=== PATIENT | female | born 1945 | race Caucasian/White ===

== ENCOUNTER 2022-05-21 18:52 | Emergency (ER) | payer MEDICARE, SELFPAY ==
--- NOTE | ~2022-05-21 | CT_ITS ---
EXAMINATION: CT abdomen pelvis wo con DATE: 05/21/2022 19:51 INDICATION: right flank painX2 DAYS, GROSS HEMATURIA, DYSURIA TECHNIQUE: Computed tomography (CT) of the abdomen and pelvis was performed without intravenous contr ast. Automated exposure control and iterative reconstruction technique were employed. The dose-length product was 865.68 mGy-cm. COMPARISON: None. FINDINGS: Lower thorax: Basilar scarring. Aortic valve calcification. Liver: Normal. Biliary/Gallbladder: Gallbladder is absent. No bile duct dilation. Pancreas: No mass or duct dilation. Spleen: Normal. Adrenals:No mass. Kidneys: No obstructive calcification or suspicious mass. Mild bilateral ureterectasis and periureter al stranding, greater on the right. GI tract: Prior gastric surgery No small or large bowel dilation. Normal appendix. Diverticulosis wit hout diverticulitis. Mesentery/Peritoneum: No ascites, mass, or free air. Retroperitoneum: No mass. Prominent periaortic nodes, not pathologically enlarged by size criteria. Pelvis: The urinary bladder is partially decompressed. Mild bladder wall inflammatory change. Uterus is absent.. Soft Tissues: Soft tissues and body wall unremarkable. Bones: No acute osseous finding. IMPRESSION: CT findings that likely represent cystitis with bilateral ascending infection, worse on the right. Reviewed, dictated and finalized at location K.
[2022-05-21 18:55] VITALS: BP 156/90; PULSE 99; RESP 16; TEMP 36.6; O2SAT 98
[2022-05-21 19:29] LABS: Add Urine Microscopic? YES; Appearance Urine Cloudy (Clear); Bilirubin Urine 2+ (Negative); Blood Urine 3+ (Negative); Color Urine Brown (Yellow); Glucose Urine UA Negative (Negative); Ketones Urine 1+ mg/dL (Negative); Leukocyte Esterase Ur 1+ LEU/UL (Negative); Nitrate Urine Positive (Negative); Protein Urine 3+ mg/dL (Negative)
--- NOTE | 2022-05-21 19:30 | ED.GENADULT ---
HPI - General Adult General Chief complaint: Urogenital-Female Stated complaint: UTI? Time Seen by Provider: 05/21/22 19:08 History of Present Illness HPI narrative: Patient 76-year-old female who presents the emergency department with chief complaint of right flank pain and hematuria. The patient states that several days ago she started having some darker urine and noticed that she was having burning with urination the patient states that she took some Azo that improved her symptoms but did not completely clear up things. The patient reports that she has had issues before like this when she had UTIs patient denies fever reports she has had some nausea but no vomiting. The patient denies history of kidney stones reports that she had a prior cholecystectomy Related Data Allergies Allergy/AdvReac Type Severity Reaction Status Date / Time No Known Allergies Allergy Verified 05/21/22 18:58 Review of Systems Review of Systems: A 10 system review of systems was completed on the patient and is negative except for what is stated in the HPI. Nursing and ancillary documentation was reviewed. Exam Narrative: GENERAL: Well-appearing, well-nourished, and in no acute distress. HEAD: Normocephalic, atraumatic. EYES: PERRLA and EOMI. ENT: Nares clear, no rhinorrhea or epistaxis. Mucous membranes moist. NECK: Supple. CHEST: Clear to auscultation. No respiratory distress. HEART: Regular rate and rhythm. No murmur heard. Normal peripheral pulses. ABDOMEN: Soft, mild tenderness to palpation throughout the abdomen, nondistended, normal active bowel sounds. EXTREMITIES: Normal range of motion. No edema. SKIN: Warm, dry, no rash. NEURO: No focal deficits. Alert and oriented x3. PSYCH: Normal mood and affect. Course Vital Signs Vital signs: Vital Signs Temperature 36.6 C 05/21/22 18:55 Pulse Rate 99 05/21/22 18:55 Respiratory Rate 16 05/21/22 18:55 Blood Pressure 156/90 H 05/21/22 18:55 Pulse Oximetry 98 05/21/22 18:55 Temperature 36.6 C 05/21/22 18:55 Pulse Rate 99 05/21/22 18:55 Respiratory Rate 16 05/21/22 18:55 Blood Pressure 156/90 H 05/21/22 18:55 Pulse Oximetry 98 05/21/22 18:55 Medical Decision Making Vital Signs Vital Signs: Vital Signs Temperature 36.6 C 05/21/22 18:55 Pulse Rate 99 05/21/22 18:55 Respiratory Rate 16 05/21/22 18:55 Blood Pressure 156/90 H 05/21/22 18:55 Pulse Oximetry 98 05/21/22 18:55 Temperature 36.6 C 05/21/22 18:55 Pulse Rate 99 05/21/22 18:55 Respiratory Rate 16 05/21/22 18:55 Blood Pressure 156/90 H 05/21/22 18:55 Pulse Oximetry 98 05/21/22 18:55 Lab Data Result diagrams: 05/21/22 19:28 05/21/22 19:28 Labs: Lab Results 05/21/22 05/21/22 05/21/22 Range/Units 19:23 19:28 19:28 WBC 10.8 H (4.5-10.0) K/mm3 RBC 3.99 L (4.2-5.4) M/mm3 Hgb 11.8 L (12.0-15.0) g/dL Hct 37.3 (37.0-47.0) % MCV 93.5 (80-100) fl MCH 29.6 (26-34) pg MCHC 31.6 L (32-36) g/dl RDW 13.4 (11.5-14.5) % Plt Count 235 (150-375) k/mm3 MPV 11.9 H (7.4-10.4) fl Immature Gran % (Auto) 0.3 (0-0.5) % Neut % (Auto) 69.4 (45.5-73.1) % Lymph % (Auto) 20.3 (18.3-44.2) % Gallia % (Auto) 9.0 H (2.6-8.5) % Eos % (Auto) 0.6 (0-4.4) % Baso % (Auto) 0.4 (0.2-1.2) % Lymph # (Auto) 2.18 (0.9-3.2) K/mm3 Gallia # (Auto) 1.0 H (0.1-0.6) K/mm3 Eos # (Auto) 0.1 (0-0.3) K/mm3 Baso # (Auto) 0.0 (0.0-0.1) K/mm3 Abs Immat Gran (auto) 0.03 (0.00-0.031) K/mm3 Absolute Neuts (auto) 7.5 H (1.3-6.7) K/mm3 Absolute Nucleated RBC 0.0 (0.0-0.012) K/mm3 Nucleated RBC % 0.0 (0.0-0.2) % Sodium 140 (137-145) mmol/L Potassium 4.3 (3.4-5.0) mmol/L Chloride 104 (98-107) mmol/L Carbon Dioxide 29 (22-30) mmol/L Anion Gap 7 L (8-16) mmol/L BUN 20 H (7-17) mg/dL Creatinine 1.20 H (0.7-1.0) mg/dL Estim
[2022-05-21 19:34] LABS: RBC Urine >75 /hpf (0-2); WBC Clumps Urine Present /HPF; WBC Urine >75 /hpf
[2022-05-21 19:43] LABS: Basophils Percent Auto 0.4 % (0.2-1.2); Eosinophils Absolute Auto 0.1 K/mm3 (0-0.3); Eosinophils Percent Auto 0.6 % (0-4.4); Hematocrit 37.3 % (37.0-47.0); Hemoglobin 11.8 g/dL (12.0-15.0); Immature Granulocyte Absolute 0.03 K/mm3 (0.00-0.031); Immature Granulocyte Percent A 0.3 % (0-0.5); Lymphocytes Absolute Auto 2.18 K/mm3 (0.9-3.2); Lymphocytes Percent Auto 20.3 % (18.3-44.2); Mean Corpuscular HGB Conc 31.6 g/dl (32-36); Mean Corpuscular Hemoglobin 29.6 pg (26-34); Mean Corpuscular Volume 93.5 fl (80-100); Mean Platelet Volume 11.9 fl (7.4-10.4); Neutrophils Absolute Auto 7.5 K/mm3 (1.3-6.7); Neutrophils Percent Auto 69.4 % (45.5-73.1); Platelet Count Result 235 k/mm3 (150-375); Red Blood Count 3.99 M/mm3 (4.2-5.4); Red Cell Distribution Width 13.4 % (11.5-14.5); White Blood Count 10.8 K/mm3 (4.5-10.0)
[2022-05-21 19:53] LABS: Alanine Aminotransferase 21 U/L (6-35); Alkaline Phosphatase 81 U/L (38-126); Anion Gap 7 mmol/L (8-16); Aspartate Amino Transferase 37 U/L (14-36); Bilirubin,Total 0.5 mg/dL (0.2-1.3); Blood Urea Nitrogen 20 mg/dL (7-17); Calcium 8.3 mg/dL (8.4-10.2); Carbon Dioxide 29 mmol/L (22-30); Chloride 104 mmol/L (98-107); Estimated CRCL calculation 41 ml/min; Estimated Glomerular Filt Rate 44; Glucose 131 mg/dL (65-110); Lipase 103 U/L (23-300); Potassium 4.3 mmol/L (3.4-5.0); Sodium 140 mmol/L (137-145)
[2022-05-21] MEDS: SODIUM CHLORIDE 0.9% IV 1,000 ML 999 ML IV CONT (20:11)
[2022-05-21] MEDS: ONDANSETRON INJ 4 MG/2 ML VIAL IV PUSH (20:11)
== END 2022-05-21 21:57 | disposition home or self-care (01) ==
PROVIDERS: Emergency Provider Emergency Medicine
DX: N10 Acute pyelonephritis (principal)
CPT/HCPCS: 36415; 74176; 80053; 81001; 83690; 85025; 87077; 87086; 87186; 96361; 96365; 96375; 99284; J0696; J2405; J7030

== ENCOUNTER 2023-06-09 13:47 | Emergency (ER) | payer MEDICARE, SELFPAY ==
--- NOTE | ~2023-06-09 | CT_ITS ---
EXAMINATION: CT thoracic lumbar wo con DATE: 06/09/2023 18:40 INDICATION: Weakness. Possible cauda equina syndrome. TECHNIQUE: Computed tomography (CT) of the thoracic and lumbar spine was performed without intravenou s contrast. Automated exposure control and iterative reconstruction technique were employed. The dose -length product was 1551.75 mGy-cm. COMPARISON: None FINDINGS: Thoracic spine: 15 degree thoracic dextroscoliosis. Sagittal alignment is normal. Vertebral body heights are normal. No acute fracture. Partially visualized instrumented anterior spinal fusion in the mid cervical spine . See separate cervical spine CT report for further detail. There are bridging osteophytes at T7-T11 with additional prominent anterior endplate osteophytes at T6 and T12 consistent with diffuse idiopat hic skeletal hyperostosis (DISH). Calcific a fox consistent with developing fusion across the modera tely narrowed T7-T11 disc spaces. Additional moderate disc height loss at T1-T2, T3-T4 and T11-T12. M ild disc height loss at the remaining thoracic levels. There is moderate to severe facet osteoarthrit is at multiple levels in the bilateral mid and lower thoracic spine. There is solid fusion across the bilateral T4-5 facet joints. This contributes to multilevel neural foraminal stenosis, severe on the right and moderate on the left at T5-T6, moderate bilaterally at T6-T7 through T8-T9 with mild neura l from stenosis at several of the remaining thoracic levels. No significant central canal stenosis of the thoracic spine. Visualized portion of the lungs are clear. No pericardial or pleural effusion. P revertebral soft tissues are unremarkable. 2 cm left renal cyst. Mild intra and extra hepatic ductal or ductal dilation likely related to prior cholecystectomy with surgical clips the gallbladder fossa. 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 Lumbar spine: A degree lumbar levocurvature. Sagittal alignment is normal. Vertebral body heights are normal. No ac jannie fracture. Moderate disc height loss with degenerative endplate changes at L2-L3. Mild disc height loss with small amount of vacuum phenomena at T12-L1, L1-L2 and L5-S1. The uterus is not identified and has likely been surgically resected. Likely tubal ligation rings at the bilateral adnexal regions . Prominent diverticulosis along the sigmoid colon without adjacent from trace stranding to suggest d iverticular colitis. Paravertebral soft tissues are unremarkable. The following disc levels are speci fically discussed: T12-L1: There is mild bilateral facet joint osteoarthritis. There is mild bilateral neural foraminal stenosis. There is no central canal stenosis. L1-L2: There is mild bilateral facet joint osteoarthritis. There is mild bilateral neural foraminal s tenosis. There is no central canal stenosis. L2-L3: Disc is bulging. There is mild to moderate bilateral facet joint osteoarthritis. There is mode rate right and mild to moderate left neural foraminal stenosis. There is mild central canal stenosis. L3-L4: Disc is bulging. There is hypertrophy of the ligamentum flavum. There is moderate left and mil d to moderate right facet joint osteoarthritis. There is mild to moderate bilateral neural foraminal stenosis. There is mild central canal stenosis. L4-L5: Disc is bulging. There is severe bilateral facet joint osteoarthritis. There is moderate left and mild to moderate right neural foraminal stenosis. There is mild central canal stenosis. L5-S1: Disc is bulging. There is moderate left and severe right facet joint osteoarthritis. There is mild right and mild to moderate left neural foraminal stenosis. There is no central canal stenosis. IMPRESSION: 1. 15 degrees thoracic dextroscoliosis bridging osteophytes from T7-T11 related to DISH. 2. Moderate to severe thoracic spondylosis with severe right-sided neural foraminal stenosis at T5-T6 and mode
--- NOTE | ~2023-06-09 | XR_ITS ---
XR knee LT 3V DATE: 06/09/2023 16:31 INDICATION: Fall. Left leg gave out. TECHNIQUE: 4 views COMPARISON: None FINDINGS: Mild suprapatellar knee joint effusion. There is tricompartment periarticular spurring of the joint spaces are relatively preserved. Diffuse osteopenia. No fracture or dislocation, periosteal reaction or bone destruction is detected. No radiopaque intra-articular loose body or chondrocalcinosis. IMPRESSION: Mild suprapatellar knee joint effusion Mild tricompartment osteophyte is Osteopenia No fracture or dislocation or bone destruction Reviewed, dictated and finalized at location B. T MAKER
--- NOTE | ~2023-06-09 | CT_ITS ---
EXAMINATION: CT cervical spine wo con DATE: 06/09/2023 18:40 INDICATION: Weakness TECHNIQUE: Computed tomography (CT) of the cervical spine was performed without intravenous contrast. Automated exposure control and iterative reconstruction technique were employed. The dose-length pro duct was 444.27 mGy-cm. COMPARISON: None FINDINGS: C3-C6 anterior spinal fusion with anterior plate and screw fixation at each level, solidly incorporat ed bone graft at C4-C5 and bone graft cages with less advanced developing fusion at C3-C4 and C5-C6. Schmorl's node along the inferior endplate of C7. No fracture. Mild disc height loss at C2-C3, C7-T1 and T2-T3 and moderate disc height loss with degenerative endplate changes at C6-C7, T1-T2 and T3-T4. Posterior disc osteophyte complex at C6-C7 and endplate osteophytes and hypertrophic changes posteri luisa at the fused disc spaces from C3 through C6 resulting in multilevel mild central canal stenosis at these levels along with moderate stenosis of the right lateral recess at C4-C5. Severe facet osteo arthritis on the left at C2-C3 and C7-T1 with mild to moderate facet osteoarthritis the remaining tanna ateral cervical facet joints. This along with the multilevel moderate to severe uncovertebral osteoar thritis contributes to moderate neural foraminal stenosis on the right at C2-C3 through C4-C5 and on the left at C2-C3, C4-C5 and C5-C6. Mild neural from stenosis at the remaining cervical levels. Visua lized upper lungs are clear. Cervical soft tissues are unremarkable. IMPRESSION: 1. Moderate cervical spondylosis with instrumented C3-C6 anterior spinal fusion. Reviewed, dictated and finalized at location A. AD CHECKER IMPRESSION: 1. Moderate cervical spondylosis with instrumented C3-C6 anterior spinal fusion .
[2023-06-09 13:50] VITALS: BP 160/98; PULSE 97; RESP 16; TEMP 36.9; O2SAT 98
[2023-06-09 17:31] VITALS: BP 179/81; PULSE 75; RESP 13; O2SAT 100
--- NOTE | 2023-06-09 17:36 | ED.FALL ---
HPI - Fall General Chief Complaint: Fall Stated Complaint: L leg posterior knee pain/weakness/L arm weak-fall Time Seen by Provider: 06/09/23 16:41 Source: patient Mode of arrival: ambulatory Limitations: no limitations History of Present Illness HPI Narrative: 77 year old female presents today with concerns of fall today. Patient states yesterday she had posterior leg pain radiating down the calf at night. Went to get up on the morning and her leg gave out on her falling onto the leg. She has noticed increased numbness to the left leg that started yesterday. She says that it feels like her leg is asleep. She has a hx of neuropathy but this is different. Weakness to the left lower extremity since this morning. patient has not been up and about much today. got to bed with assist. Can lift leg off the bed a few inches. endorses urinary incontinence but that is not new and endorses bowel incontinence which is new. MD complaint: fall Related Data Allergies Allergy/AdvReac Type Severity Reaction Status Date / Time Penicillins Allergy Rash Verified 06/09/23 13:54 Review of Systems Review of Systems: All systems reviewed & are unremarkable except as noted in HPI and below [facility] Past Medical History Medical History (Updated 06/09/23 @ 18:41 by Bridgette Muñoz APRN) Neuropathy Surgical History Surgical History (Updated 06/09/23 @ 18:41 by Bridgette Muñoz APRN) H/O cervical spine surgery Exam Const: General: cooperative, healthy appearing, comfortable, no acute distress and well developed Orientation/consciousness: patient oriented x3 HENMT: Head: normal to inspection Eyes: General: appearance normal, both eyes and all related structures Resp: Effort & Inspection: normal respiratory effort and able to speak in complete sentences Auscultation: clear to auscultation bilaterally Cardio: Rate: regular rate Rhythm: regular rhythm Heart sounds: S1 normal heart sound present and S2 normal heart sound present Skin: General skin exam: normal color Neuro: General: patient oriented x3 Cranial nerves: Yes CN's II-XII intact bilaterally Motor exam (neuro): Abnormal motor strength present Sensory Exam: Sensory deficit (Neuro) and Perineum abnormal (decreased rectal tone, exam done with credentialer) Other: Left lower extremity strength 2/5. able to lift left against gravity off bed about 3 inches. decreased sensation but pt also with decreased sensation to right extremity but that is at baseline. Course Course Emergency Course: 1800 discussed with ortho spine. 1830 discussed with [facility] and accept for transfer. Aware no results from CT and disc will be sent. Pt aware of need for transfer. Daughter at bedside and update. Understands reasoning behind transfer and agree with plan of care. Vital Signs Vital signs: Vital Signs Temperature 98.4 F 06/09/23 13:50 Pulse Rate 97 06/09/23 13:50 Respiratory Rate 16 06/09/23 13:50 Blood Pressure 160/98 H 06/09/23 13:50 Pulse Oximetry 98 06/09/23 13:50 Oxygen Delivery Room Air 06/09/23 13:50 Temperature 98.4 F 06/09/23 13:50 Pulse Rate 97 06/09/23 13:50 Respiratory Rate 16 06/09/23 13:50 Blood Pressure 160/98 H 06/09/23 13:50 Pulse Oximetry 98 06/09/23 13:50 Oxygen Delivery Room Air 06/09/23 13:50 MDM - Fall MDM Narrative Medical decision making narrative: 77 year old woman hpi as noted. Concerns for cauda equina. iv decadron given ct spine completed while awaiting transfer to [facility]. Discussed with ortho spine there and they will evaluate her there. CT spine obtained disc sent with Differential Diagnosis Differential diagnosis: Likely other (knee fracture, leg weakness, neuropathy, cauda equina, ) Lab Data Attestation: I reviewed the patient's lab results. Imaging Data Radiologist's impression: not available at time of transfer Critical Care Time Critical Care Time Critical Care Time: Yes Total Critical Car
[2023-06-09 18:15] LABS: Basophils Percent Auto 0.5 % (0.2-1.2); Eosinophils Absolute Auto 0.1 K/mm3 (0-0.3); Eosinophils Percent Auto 1.4 % (0-4.4); Hematocrit 37.2 % (37.0-47.0); Hemoglobin 11.8 g/dL (12.0-15.0); Immature Granulocyte Absolute 0.02 K/mm3 (0.00-0.031); Immature Granulocyte Percent A 0.2 % (0-0.5); Lymphocytes Absolute Auto 2.92 K/mm3 (0.9-3.2); Lymphocytes Percent Auto 32.9 % (18.3-44.2); Mean Corpuscular HGB Conc 31.7 g/dl (32-36); Mean Corpuscular Hemoglobin 29.1 pg (26-34); Mean Corpuscular Volume 91.6 fl (80-100); Monocytes Absolute Auto 0.6 K/mm3 (0.1-0.6); Monocytes Percent Auto 6.9 % (2.6-8.5); Neutrophils Absolute Auto 5.2 K/mm3 (1.3-6.7); Neutrophils Percent Auto 58.1 % (45.5-73.1); Platelet Count Result 254 k/mm3 (150-375); Red Blood Count 4.06 M/mm3 (4.2-5.4); Red Cell Distribution Width 13.2 % (11.5-14.5); White Blood Count 8.9 K/mm3 (4.5-10.0)
[2023-06-09 18:29] LABS: Alanine Aminotransferase 28 U/L (6-35); Albumin Level 4.2 g/dL (3.5-5.1); Alkaline Phosphatase 82 U/L (38-126); Anion Gap 7 mmol/L (8-16); Aspartate Amino Transferase 46 U/L (14-36); Bilirubin,Total 0.4 mg/dL (0.2-1.3); Blood Urea Nitrogen 20 mg/dL (7-17); Calcium 8.8 mg/dL (8.4-10.2); Carbon Dioxide 28 mmol/L (22-30); Chloride 106 mmol/L (98-107); Estimated CRCL calculation 58 ml/min; Estimated Glomerular Filt Rate > 60; Glucose 97 mg/dL (65-110); Potassium 3.9 mmol/L (3.4-5.0); Sodium 141 mmol/L (137-145)
[2023-06-09 19:46] VITALS: BP 163/76; PULSE 61; RESP 14; O2SAT 98
[2023-06-09 19:47] VITALS: PULSE 68; RESP 12
== END 2023-06-09 20:05 | disposition short-term general hospital (02) ==
PROVIDERS: Emergency Provider Nurse Practitioner Family
DX: M62.81 Muscle weakness (generalized) (principal); R20.0 Anesthesia of skin; R15.9 Full incontinence of feces; Z98.890 Other specified postprocedural states; W19.XXXA Unspecified fall, initial encounter
CPT/HCPCS: 36415; 72125; 72128; 72131; 73562; 80053; 85025; 96374; 99285; J1100

== ENCOUNTER 2023-10-03 11:20 | Outpatient (CLI) | payer MEDICARE, SELFPAY ==
--- NOTE | ~2023-10-03 | MM_ITS ---
EXAMINATION: MM screening lorenzo BI w suzanne HISTORY: Screening mammogram TECHNIQUE: Craniocaudal and mediolateral oblique 3-D tomosynthesis images were obtained and synthetic 2-D images were generated. CAD analysis was submitted and interpreted. COMPARISON: No prior mammogram is available for comparison at this institution. BREAST PARENCHYMAL COMPOSITION: There are scattered areas of fibroglandular density. FINDINGS: There is an approximate 4.9 x 11.4 mm circumscribed mass density in the anterior lower inne r left breast. Diagnostic left mammogram and targeted left breast ultrasound examination are recommen ded. Similar but smaller oval circumscribed opacity is noted deep in the inner aspect of the right breast on craniocaudal view, probably situated in the posterior upper inner quadrant. Diagnostic right mammo gram and targeted right breast ultrasound examination are recommended. No suspicious mass, architectural distortion, malignant calcification, skin thickening or retraction of either breast is noted otherwise. IMPRESSION: 1. Bilateral breast masses 2. Bilateral diagnostic mammography and bilateral targeted breast ultrasound examination are recommen ded BI-RADS Category 0: Incomplete: Needs additional imaging evaluation. Reviewed, dictated and finalized at location A. IMPRESSION: 1. Bilateral breast masses 2. Bilateral diagnostic mammography and bilateral targeted breast ultrasound ex amination are recommended BI-RADS Category 0: Incomplete: Needs additional imaging evaluation.
== END 2023-10-03 11:21 | disposition home or self-care (01) ==
LOC: CHSIMG 11:21
PROVIDERS: PCP Emergency Medicine; Visit Provider Emergency Medicine
DX: Z12.31 Encounter for screening mammogram for malignant neoplasm of breast (principal); R92.8 Other abnormal and inconclusive findings on diagnostic imaging of breast
CPT/HCPCS: 77063; 77067

== ENCOUNTER 2023-10-23 09:28 | Outpatient (CLI) | payer MEDICARE, SELFPAY ==
--- NOTE | ~2023-10-23 | MMUS_ITS ---
EXAMINATION: MM diagnostic lorenzo BI w suzanne, US breast BI limited HISTORY: Follow-up breast asymmetries TECHNIQUE: Additional 3-D tomosynthesis images of the breasts were performed and synthetic 2-D images were generated. CAD analysis was submitted and interpreted. High resolution limited bilateral breast ultrasound was performed. COMPARISON: None BREAST PARENCHYMAL COMPOSITION: Not dense: There are scattered areas of fibroglandular density. FINDINGS: MAMMOGRAPHIC FINDINGS: There is no mammographic evidence for malignancy in the right breast. There is a focal elliptical mas s in the lower inner quadrant of the left breast anteriorly. ULTRASOUND: Limited right breast ultrasound: Normal heterogeneous echotexture without focal solid or cystic mass. Limited left breast ultrasound: At 10:00, 5 cm from the nipple, there is a 10 mm irregular mass with posterior shadowing and no internal vascularity. IMPRESSION: 1. Abnormal left breast mass at 10:00, 5 cm from the nipple measuring 10 mm. 2. Ultrasound-guided left breast biopsy recommended. BI-RADS category 4, suspicious findings. Reviewed, dictated and finalized at location A. IMPRESSION: 1. Abnormal left breast mass at 10:00, 5 cm from the nipple measuring 10 mm. 2. Ultrasound-guided left breast biopsy recommended. BI-RADS category 4, suspicious findings.
== END 2023-10-23 09:29 | disposition home or self-care (01) ==
LOC: CHSIMG 09:31
PROVIDERS: PCP Emergency Medicine; Visit Provider Emergency Medicine
DX: N63.10 Unspecified lump in the right breast, unspecified quadrant (principal); R92.8 Other abnormal and inconclusive findings on diagnostic imaging of breast
CPT/HCPCS: 76642; 77062; 77066; G0279

== ENCOUNTER 2023-12-04 09:08 | Outpatient (CLI) | payer MEDICARE, SELFPAY ==
--- NOTE | ~2023-12-04 | US_ITS ---
US breast LT limited DATE: 12/04/2023 11:58 INDICATION: Patient presented for ultrasound guided biopsy of abnormal left breast mass at 10:00 5 cm from nipple reported on [facility] October 23, 2023 breast ultrasound examina tion. TECHNIQUE: Real-time and color flow imaging of upper-outer quadrant of right breast COMPARISON: October 23, 2023 bilateral diagnostic mammography and bilateral Limited breast ultrasound FINDINGS: Both the technologist and Dr. Arenas scanned the upper outer quadrant of the right breast. No suspicious mass or suspicious shadowing or vascularity is detected. I discussed the findings with the patient and indicated that there was no suspicious finding in need of biopsy at this time. I suggest a 6 month follow-up right breast Limited ultrasound examination for confirmation. IMPRESSION: BI-RADS Category 3: Probably benign RECOMMENDATION: 6 month follow up limited left breast ultrasound examination Reviewed, dictated and finalized at Location A. Reviewed, dictated and finalized at location A.
== END 2023-12-04 09:09 | disposition home or self-care (01) ==
LOC: ANHIMG 09:10
PROVIDERS: PCP Emergency Medicine; Visit Provider Emergency Medicine
DX: N63.21 Unspecified lump in the left breast, upper outer quadrant (principal); R92.8 Other abnormal and inconclusive findings on diagnostic imaging of breast
CPT/HCPCS: 76642